=== PATIENT | female | born 1995 | race Two or more races ===

== ENCOUNTER 2017-07-08 10:58 | Emergency (ER) | payer OTHER ==
[2017-07-08 11:40] VITALS: TEMP 98.8; BMI 22.8
--- NOTE | 2017-07-08 12:56 | PDOC ---
History of Present Illness <Nunu Carrizales - Last Filed: 07/08/17 14:17> - General History Source: Patient Exam Limitations: No Limitations - History of Present Illness Initial Comments: 07/08/17 14:38 Patient is a 21 year old female with no significant past medical history of who presents to the ED with complaints of headache that began yesterday morning. Patient reports waking up yesterday morning and begun experiencing sudden onset of frontal head pain. She reports headache was persistent throughout the day until subsiding at 11pm. Patient reports waking up this morning feeling woozy, stating she experiencing nausea and intermittent chest pain. Denies coughing, vomiting. Denies contact with sick individual, out of state travelling. Denies any other symptoms. Allergies: None Social history: No alcohol. No illicit drugs. Surgical history: None PMD: Dr. Valdivia <Abiel Baez - Last Filed: 07/08/17 14:38> - General Chief Complaint: Lightheaded Stated Complaint: FATIGUE Time Seen by Provider: 07/08/17 11:55 Past History - Past Medical History Asthma: No Cancer: No Cardiac Disorders: No COPD: No HTN: No Seizures: No Thyroid Disease: No Other medical history: DENIES. - Surgical History Cholecystectomy: Yes - Suicide/Smoking/Psychosocial Hx Smoking History: Never smoked Have you smoked in the past 12 months: No Hx Alcohol Use: No Drug/Substance Use Hx: No Substance Use Type: None Hx Substance Use Treatment: No <Nunu Carrizales - Last Filed: 07/08/17 14:17> <Abiel Baez - Last Filed: 07/08/17 14:38> - Past Medical History Allergies/Adverse Reactions: Allergies Allergy/AdvReac Type Severity Reaction Status Date / Time No Known Allergies Allergy Verified 07/08/17 11:36 Home Medications: Ambulatory Orders Meclizine HCl [Antivert -] 25 mg PO QID PRN #28 tablet 07/08/17 Review of Systems - Review of Systems Able to Perform ROS?: Yes Comments:: 07/08/17 14:38 GENERAL/CONSTITUTIONAL: No fever or chills. No weakness. HEAD, EYES, EARS, NOSE AND THROAT: No change in vision. No ear pain or discharge. No sore throat. GASTROINTESTINAL: +Nausea. No vomiting, diarrhea or constipation. GENITOURINARY: No dysuria, frequency, or change in urination. CARDIOVASCULAR: +Chest pain. No shortness of breath. RESPIRATORY: No cough, wheezing, or hemoptysis. MUSCULOSKELETAL: No joint or muscle swelling or pain. No neck or back pain. SKIN: No rash NEUROLOGIC: +Headache. No vertigo, loss of consciousness, or change in strength/sensation. ENDOCRINE: No increased thirst. No abnormal weight change. HEMATOLOGIC/LYMPHATIC: No anemia, easy bleeding, or history of blood clots. ALLERGIC/IMMUNOLOGIC: No hives or skin allergy. All Other Systems: Reviewed and Negative <Abiel Baez - Last Filed: 07/08/17 14:38> *Physical Exam - Vital Signs Last Vital Signs Temp Pulse Resp BP Pulse Ox 98.8 F 74 17 118/73 100 07/08/17 11:37 07/08/17 11:37 07/08/17 11:37 07/08/17 11:37 07/08/17 11:37 <Nunu Carrizales - Last Filed: 07/08/17 14:17> - Vital Signs Last Vital Signs Temp Pulse Resp BP Pulse Ox 98.8 F 76 16 108/72 100 07/08/17 11:37 07/08/17 14:36 07/08/17 14:36 07/08/17 14:36 07/08/17 11:37 - Physical Exam Comments: 07/08/17 14:38 GENERAL: Awake, alert, and fully oriented, in no acute distress HEAD: No signs of trauma EYES: PERRLA, EOMI, sclera anicteric, conjunctiva clear ENT: +Tympanic membrane normal bilaterally. +Dry mucous membrane. Auricles normal inspection, hearing grossly normal, nares patent, oropharynx clear without exudates. NECK: Normal ROM, supple, no lymphadenopathy, JVD, or masses LUNGS: Breath sounds equal, clear to auscultation bilaterally. No wheezes, and no crackles HEART: Regular rate and rhythm, normal S1 and S2, no murmurs, rubs or gallops ABDOMEN: Soft, nontender, normoactive bowel sounds. No guarding, no rebound. No masses EXTREMITIES: Normal range of motion, no edema. No clubbing or cyanosis. No cords, erythema, or tenderness NEUROLOGICAL: Cranial nerves II through XII grossly intact. Normal speech, normal gait SKIN: Warm, Dry, normal turgor, no rashes or lesions noted. <Abiel Baez - Last Filed: 07/08/17 14:38> ED Treatment Course - LABORATORY CBC & Chemistry Diagram: 07/08/17 13:13 07/08/17 13:13 <Nunu Carrizales - Last Filed: 07/08/17 14:17> - LABORATORY CBC & Chemistry Diagram: 07/08/17 13:13 07/08/17 13:13 - ADDITIONAL ORDERS Additional order review: Laboratory Results 07/08/17 07/08/17 07/08/17 13:20 13:13 13:13 Sodium 141 Potassium 3.8 Chloride 107 Carbon Dioxide 27 Anion Gap 7 L BUN 13 Creatinine 0.6 Creat Clearance w eGFR > 60 Random Glucose 79 Calcium 8.9 Total Bilirubin 0.4 AST 9 L ALT 21 Alkaline Phosphatase 87 Total Protein 7.2 Albumin 3.7 Serum , Qual Negative Urine Color Yellow Urine Appearance Turbid Urine pH 7.0 D Ur Specific [place] 1.021 Urine Protein 1+ H Urine Glucose (UA) Negative Urine Ketones Negative Urine Blood Negative Urine Nitrite Negative Urine Bilirubin Negative Urine Urobilinogen Negative Ur Leukocyte Esterase Trace Urine HCG, Qual Negative 07/08/17 13:13 RBC 4.34 MCV 77.4 L MCHC 31.4 L RDW 15.4 MPV 8.9 Neutrophils % 55.7 Lymphocytes % 32.6 D Monocytes % 9.2 Eosinophils % 1.5 Basophils % 1.0 - Medications Given in the ED: ED Medications Discontinued Medications Generic Name Dose Route Start Last Admin Trade Name Cresencioq PRN Reason Stop Dose Admin Sodium Chloride 1,000 mls @ 1,000 mls/hr 07/08/17 12:57 07/08/17 13:16 Normal Saline - IV 07/08/17 13:56 1,000 mls/hr ASDIR STA Administration Meclizine HCl 25 mg 07/08/17 13:27 07/08/17 13:31 Antivert - PO 07/08/17 13:28 25 mg ONCE ONE Administration Ondansetron HCl 4 mg 07/08/17 12:57 07/08/17 13:16 Zofran Injection IVPUSH 07/08/17 12:58 4 mg ONCE ONE Administration <Abiel Baez - Last Filed: 07/08/17 14:38> *DC/Admit/Observation/Transfer - Discharge Dispostion Admit: No <Nunu Carrizales - Last Filed: 07/08/17 14:17> - Attestations Scribe Attestion: 07/08/17 14:38 Documentation prepared by Abiel Baez, acting as biomedical engineering internship for Nunu Carrizales MD, /DO. <Abiel Baez - Last Filed: 07/08/17 14:38> Diagnosis at time of Disposition: Vertigo - Discharge Dispostion Disposition: HOME Condition at time of disposition: Stable - Prescriptions Prescriptions: Meclizine HCl [Antivert -] 25 mg PO QID PRN #28 tablet PRN Reason: Vertigo - Referrals Referrals: Constance Valdivia [facility] [Primary Care Provider] - - Patient Instructions Printed Discharge Instructions: DI for Vertigo Print Language: MALTESE - Post Discharge Activity
[2017-07-08] MEDS ORDERED: ONDANSETRON 4 MG/2 ML VIAL IVPUSH ONE (12:57)
[2017-07-08] MEDS ORDERED: SODIUM CHLORIDE 1,000 ML IV STA (12:57)
[2017-07-08] MEDS ORDERED: ONDANSETRON 4 MG/2 ML VIAL ONE (13:02)
[2017-07-08] MEDS ORDERED: MECLIZINE HCL 25 MG TABLET (FP) PO ONE (13:27)
[2017-07-08] MEDS ORDERED: MECLIZINE HCL 25 MG TABLET (FP) ONE (13:29)
[2017-07-08 13:30] LABS: URINE APPEARANCE TURBID; URINE BILIRUBIN NEGATIVE (NEGATIVE); URINE BLOOD NEGATIVE (NEGATIVE); URINE COLOR YELLOW; URINE GLUCOSE (UA) NEGATIVE (NEGATIVE); URINE KETONE NEGATIVE (NEGATIVE); URINE LEUK ESTERASE TRACE (NEGATIVE); URINE NITRITE NEGATIVE (NEGATIVE); URINE UROBILINOGEN NEGATIVE mg/dL (0.2-1.0)
[2017-07-08 13:30] LABS: EOS % 1.5 % (0-4.5); HEMATOCRIT 33.6 % (32.4-45.2); HEMOGLOBIN 10.5 GM/dL (10.7-15.3); LYMPH % 32.6 % (8-40); MCH 24.3 pg (25.7-33.7); MCHC 31.4 g/dl (32.0-36.0); MEAN CELL VOLUME 77.4 fl (80-96); MEAN PLT VOLUME 8.9 fl (7.5-11.1); MONO % 9.2 % (3.8-10.2); NEUT % 55.7 % (42.8-82.8); PLATELET COUNT 231 K/MM3 (134-434); RBC 4.34 M/mm3 (3.60-5.2); RDW 15.4 % (11.6-15.6)
[2017-07-08 13:32] LABS: HCG,QUALITATIVE URINE NEGATIVE
[2017-07-08 13:39] LABS: URINE PROTEIN 1+ (NEGATIVE)
[2017-07-08 14:01] LABS: ALBUMIN 3.7 g/dl (3.4-5.0); ANION GAP 7 (8-16); BLOOD UREA NITROGEN 13 mg/dL (7-18); CALCIUM 8.9 mg/dL (8.5-10.1); CHLORIDE 107 mmol/L (98-107); CO2 27 mmol/L (21-32); POTASSIUM 3.8 mmol/L (3.5-5.1); SGOT/AST 9 U/L (15-37); SGPT/ALT 21 U/L (12-78); SODIUM 141 mmol/L (136-145)
[2017-07-08 14:07] LABS: ALK PHOS 87 U/L (45-117); BILIRUBIN,TOTAL 0.4 mg/dL (0.2-1.0); CREATININE 0.6 mg/dL (0.55-1.02); GLUCOSE,RANDOM 79 mg/dL (74-106); TOT PROT 7.2 g/dl (6.4-8.2)
[2017-07-08 14:37] VITALS: BP 108/72; PULSE 76
[2017-07-08 14:57] LABS: EPI CELLS FEW /HPF (FEW); URINE MUCUS FEW; YEAST RARE
--- NOTE | 2017-07-08 16:12 | EKG ---
Test Reason : Blood Pressure : / mmHG Vent. Rate : 064 BPM Atrial Rate : 064 BPM P-R Int : 164 ms QRS Dur : 082 ms QT Int : 426 ms P-R-T Axes : 035 -18 023 degrees QTc Int : 439 ms NORMAL SINUS RHYTHM LOW VOLTAGE QRS BORDERLINE ECG NO PREVIOUS ECGS AVAILABLE Confirmed by FELISHA VIERA, RUBEN ([id number]) on 07/08/2017 4:12:22 PM Referred By: Confirmed By:RUBEN BAEZA MD
== END 2017-07-08 14:37 | disposition home or self-care (01) ==
LOC: JER 10:58
PROC: 3E033GC Introduction of Other Therapeutic Substance into Peripheral Vein, Percutaneous Approach (ICD-10-PCS; principal; 2017-07-08)
DX: R42 Dizziness and giddiness (principal)
CPT/HCPCS: 36415; 80053; 81003; 81015; 84703; 85025; 93005; 93010; 99282-25